=== PATIENT | male | born 1965 | race Caucasian/White ===

== ENCOUNTER 2018-01-22 14:53 | Inpatient (IN) | payer OTHER ==
--- NOTE | 2018-01-22 15:19 | EDPHY ---
H & P Time Seen by Provider: 01/22/18 14:57 HPI/ROS: CHIEF COMPLAINT: Fall, elbow fracture, pelvic fracture, scapular fracture HISTORY OF PRESENT ILLNESS: The patient is a 52-year-old male who presents to the emergency department as a transfer from [facility]. The patient is a michael who fell from a 20 ft Grain bin. The patient states he did not lose consciousness but he had significant pelvic in arm pain after the fall. The patient was seen at [facility]. He was diagnosed with multiple injuries. He has a comminuted fracture of his proximal intertrochanteric left femur, nondisplaced fractures of his left superior pubic ramus, right pubic body, right inferior pubic ramus and potentially his left sacral ala. Patient also has a left radial head fracture, olecranon fracture, and elbow laceration. The patient has left scapular fracture. The patient states that his wound was suture repaired at [facility]. The patient denies any headache or neck pain. No back pain. No shortness of breath or chest pain. No abdominal pain. No nausea vomiting. No incontinence of urine or stool. No numbness or tingling. The patient states he was transferred to [facility] because the physician at the clinic at [facility]. The patient came by ground ambulance. REVIEW OF SYSTEMS: My complete review of systems is negative except as mentioned in the HPI. Past Medical/Surgical History: Denies Past surgical history: Negative Social history: The patient does not smoke. He is a michael. Smoking Status: Never smoked Physical Exam: Vitals noted GENERAL: No acute distress, alert. HEAD: No evidence of trauma. EYES: PERRLA, EOMI, normal to inspection. ENT: Airway intact, normal external examination. NECK: The trachea is midline. There is no crepitus. The C-spine is nontender. NEXUS criteria is negative (no midline tenderness, no distracting injury, no altered mental status, no recent alcohol use, no focal neurologic deficit). RESPIRATORY: Clear to auscultation bilaterally, no rales, rhonchi or wheezing. There is no crepitus or palpable rib fractures. CVS: Regular rate and rhythm, no rubs, murmurs, or gallops. ABDOMEN: Soft, nontender, nondistended, normal bowel sounds, no bruising or abrasions. Pelvis: Normal appearing. I do not palpate his pelvis. No gross deformity. BACK: Normal to inspection, no spinal tenderness, no spinal step off, no notable bruising or abrasions. SKIN: Normal color, warm, dry. No pallor or diaphoresis. EXTREMITIES: Right upper extremity: Atraumatic. No visible signs of trauma. No tenderness palpation. Neurovascular intact distally. Left upper extremity: Patient has a dressing in place on his left elbow. He states his wound was suture repaired. I did not remove the dressing. Neurovascular intact distally. Right lower extremity: Atraumatic. No visible signs of trauma. No tenderness palpation. Neurovascular intact distally. Left lower extremity: The patient has a noted left femur fracture. I did not range of motion his left leg. He was neurovascular intact distally. Normal appearing. NEURO/PSYCH: Alert and oriented x 3, GCS 15, normal mood and affect, normal motor sensory exam. Constitutional: Initial Vital Signs Temperature (C) 36.5 C 01/22/18 15:07 Heart Rate 78 01/22/18 15:07 Respiratory Rate 18 01/22/18 15:07 Blood Pressure 129/71 H 01/22/18 15:07 O2 Sat (%) 98 01/22/18 15:07 O2 Delivery Mode Room Air Allergies/Adverse Reactions: No Known Allergies Allergy (Unverified 01/22/18 15:06) Home Medications: Medication Instructions Recorded NK [No Known Home Meds] 01/22/18 Medical Decision Making ED Course/Re-evaluation: I met EMS on arrival. I discussed the plan with the patient and family. I reviewed the patient's medical record from [facility]. I discussed the plan with the patient. He states he last ate at 7:00 a.m.. The patient has received Ancef IV and tetanus update. The patient's imaging disc was given to nursing staff to give to Radiology for upload. 1520: I discussed the case with Dr. Murcia all her from Trauma surgery. He was in the emergency department to evaluate the patient. 1555: Repaged Dr. Atkinson. Still awaiting call back. 1600: I discussed the case with Dr. Atkinson. He is aware. I rechecked the patient on multiple occasions. He was stable throughout his stay. He had no new complaints while here. I also discussed case with Dr. Linares on multiple occasions. Differential Diagnosis: My differential includes but isn't limited to pelvic fracture, femur fracture, hemorrhage, elbow fracture, scapular fracture, pneumothorax, hemothorax, anemia , head injury, spinal injury - Data Points Medications Given: Discontinued Medications Hydromorphone HCl (Dilaudid) 0.5 mg IVP EDNOW ONE Stop: 01/22/18 15:45 Last Admin: 01/22/18 16:03 Dose: 0.5 mg Departure - Departure Disposition: [facility] Inpatient Acute Clinical Impression: Elbow laceration Left scapula fracture Qualifiers: Encounter type: initial encounter Scapula location: unspecified part of scapula Fracture type: closed Qualified Code(s): S42.102A - Fracture of unspecified part of scapula, left shoulder, initial encounter for closed fracture Femur fracture, left Qualifiers: Encounter type: initial encounter Femur location: intertrochanteric Fracture type: closed Fracture alignment: nondisplaced Qualified Code(s): S72.145A - Nondisplaced intertrochanteric fracture of left femur, initial encounter for closed fracture Left radial head fracture Qualifiers: Encounter type: initial encounter Fracture type: closed Condition: Good
[2018-01-22] MEDS ORDERED: HYDROmorphONE/DILAUDID 2 MG/ML INJ IVP ONE ×2 (15:44→16:56)
--- NOTE | 2018-01-22 16:45 | ASMTCMCOM ---
CM Note CM Note Notes: Patient is a healthy 52 year old michael transferred to [facility] from [facility] after sustaining a 20 foot fall and subsequent fractures. He is accompanied by his Collette and other family. I introduced myself prior to his transfer to and assured him CM would be following with any discharge planning needs prn Date Signed: 01/22/2018 04:44 PM Electronically Signed By:Nikki Fuentes RN
[2018-01-22] MEDS ORDERED: HYDROmorphone HCL/NS 0.5 MG/ML SYR IVP PRN ×2 (17:13→22:05)
[2018-01-22] MEDS ORDERED: ONDANSETRON 4 MG/2 ML VIAL IVP PRN ×2 (17:13→22:05)
[2018-01-22] MEDS ORDERED: POLYMYXIN B SULFATE 500,000 UNIT/10 ML SYR IRR ONE ×2 (19:05→21:45)
[2018-01-22] MEDS ORDERED: BUPIVACAINE 0.5% 30 ML SDV ONE (19:05)
[2018-01-22] MEDS ORDERED: BUPIVACAINE/EPI 0.5% 30 ML SDV ONE (19:05)
[2018-01-22 19:09] LABS: PLATELET COUNT 159 10^3/uL (150-400)
--- NOTE | 2018-01-22 19:09 | GHP ---
[f rep st] HISTORY AND PHYSICAL DATE OF ADMISSION: 01/22/2018 CHIEF COMPLAINT: Fall. Trauma transfer. HISTORY OF PRESENT ILLNESS: This is a 52-year-old male who was a trauma transfer from [facility] in [facility]. Briefly, he is a michael who was on top of his grain bin approximately 20 feet high. 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 He states that when he fell, he struck mostly his left side, namely his pelvis. He denies hitting his head or having any loss of consciousness. He was subsequently taken to [facility] where he was received there as a full trauma. He had imaging of his chest, abdomen, and pelvis including CT scan and plain films and the following injuries are identified: A comminuted left intertrochanteric femur fracture, a nondisplaced fracture of his left superior pubic rami, and right pubic body as well as the right inferior pubic rami and likely his left sacral ala. He also has a fracture of his left radial head and olecranon process and a laceration which was subsequently repaired at the outside hospital. In addition, he also has a left scapular fracture. On arrival here, approximately 3 hours after leaving [place], he states that his pain is better. He complains of left lower extremity pain, but other than that states that he feels well. He is otherwise hemodynamically stable. He is protecting his airway. His breathing is normal and his circulation has been adequate throughout his hospital stay, both at the outside hospital during transport and here at [facility]. PAST MEDICAL HISTORY: None. PAST SURGICAL HISTORY: None. ALLERGIES: None. CURRENT MEDICATIONS: None. SOCIAL HISTORY: Denies illicit drug use. 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 Denies illicit drug use. FAMILY HISTORY: Noncontributory. REVIEW OF SYSTEMS: A full 10-point review was performed. PHYSICAL EXAMINATION: VITAL SIGNS: Temperature 37.6, blood pressure 113/74, heart rate 83, and he is 94% on 2 L nasal cannula. CONSTITUTIONAL: He is in a mild amount of distress and he is uncomfortable. HEENT: Eyes: His pupils are equal, round, and reactive to light and accommodation. He has anicteric sclerae and his extraocular movements are intact. Ears, nose, mouth, throat: He has moist mucous membranes. His hearing is normal. His ears appear normal and he has no oral mucosal ulcers. He has no ostensible trauma to the remainder of his face. CARDIOVASCULAR: He has a regular rate and rhythm without any murmurs. RESPIRATORY: There is no respiratory distress, rales, rhonchi, and is otherwise clear to auscultation bilaterally. GI: ABDOMEN: Soft, nondistended, nontender. He has normoactive bowel sounds. PELVIS: His pelvic is stable to both AP and lateral compression. He is tender on palpation of the left anterior-superior iliac spine. SKIN: Warm. Normal color. No rashes. The laceration on his left elbow has been subsequently repaired and is wrapped appropriately. There are no ostensible signs of infection at this time. MUSCULOSKELETAL: Left lower extremity is in an abducted and externally rotated position. He has limited movement of his left upper extremity, given fractures. Otherwise, has no tenderness with joint range of motion on the right side. NEUROLOGIC: He is alert and oriented x3. His cranial nerves 2-12 are intact. He has no weakness, numbness, or asterixis. PSYCH: He is interacting appropriately. He is not anxious. He is not encephalopathic and his thought process is linear. LYMPH, HEME, AND IMMUNOLOGIC: He has no cervical lymphadenopathy. No supraclavicular lymphadenopathy. LABS: Labs performed at the outside hospital are within normal limits. Upon arrival here, his white blood cell count is marginally elevated and his hemoglobin has dropped to 12. His metabolic panel is within normal limits. IMAGING: The patient had CT scans of the chest, abdomen, and pelvis as well as plain films of the same, a disc with the images accompanied the patient and I had them uploaded to our system. These images were personally reviewed. The following injuries are identified: Left scapular fracture, comminuted fracture of his proximal intertrochanteric left femur, nondisplaced fracture of his left superior pubic rami, right pubic body, right inferior pubic rami and left sacral ala, left radial head fracture, olecranon fracture. ASSESSMENT AND PLAN: A 52-year-old male status post 20 foot fall with the above injuries. He was subsequently admitted to the trauma service. He has received consultation from Orthopedics who are planning operative intervention. We will continue to follow him closely. His H and H and vitals have been stable. His pelvic fracture at this point looks stable as well. We will continue n.p.o. status. Continue to trend his hemoglobin and hematocrit. Since he is high risk for deep venous thrombosis, will subsequently be started on low-molecular weight heparin prophylaxis. He takes no chronic medications. /[id number]/MODL MTDD
[2018-01-22] MEDS ORDERED: LR 1,000 ML IV ONE (19:24)
--- NOTE | 2018-01-22 19:24 | PDANEPAE ---
ANE History of Present Illness 52 yo for orif hip fx ANE Past Medical History - Cardiovascular History Hx Hypertension: No Hx Arrhythmias: No Hx Chest Pain: No Hx Coronary Artery / Peripheral Vascular Disease: No Hx CHF / Valvular Disease: No Hx Palpitations: No - Pulmonary History Hx COPD: No Hx Asthma/Reactive Airway Disease: No Hx Recent Upper Respiratory Infection: No Hx Oxygen in Use at Home: No Hx Sleep Apnea: No Sleep Apnea Screening Result - Last Documented: Positive - Endocrine History Hx Diabetes: No ANE Review of Systems Review of Systems: - Exercise capacity METS (RN): 5 METS ANE Patient History - Allergies Allergies/Adverse Reactions: No Known Allergies Allergy (Unverified 01/22/18 15:06) - Home Medications Home medications: home medication list seen and reviewed Home Medications: NK [No Known Home Meds] 01/22/18 [Last Taken Unknown] - NPO status NPO Status: no food or drink >8 hours NPO Since - Liquids (Date): 01/22/18 NPO Since - Liquids (Time): 07:30 NPO Since - Solids (Date): 01/22/18 NPO Since - Solids (Time): 07:30 - Anes Hx Anes Hx: no prior problems - Smoking Hx Smoking Status: Never smoked ANE Labs/Vital Signs - Labs Result Diagrams: 01/22/18 18:56 01/22/18 18:56 - Vital Signs Blood Pressure: 113/108 Heart Rate: 82 Respiratory Rate: 17 O2 Sat (%): 94 Height: 5 ft 11.65 in Weight: 83.915 kg ANE Physical Exam - Airway Neck exam: FROM Mallampati Score: Class 2 Mouth exam: normal dental/mouth exam - Pulmonary Pulmonary: no respiratory distress - Cardiovascular Cardiovascular: regular rate and rhythym - ASA Status ASA Status: I ANE Anesthesia Plan Anesthesia Plan: general endotracheal anesthesia
[2018-01-22] MEDS ORDERED: PROPOFOL/EMULSION 500 MG/50 ML BOTTLE IV ONE (19:30)
[2018-01-22] MEDS ORDERED: fentaNYL 250 MCG/5 ML INJ ONE (19:30)
[2018-01-22] MEDS ORDERED: MIDAZOLAM 2 MG/2 ML VIAL ONE (19:52)
[2018-01-22] MEDS ORDERED: MIDAZOLAM 2 MG/2 ML VIAL IVP ONE (19:52)
[2018-01-22] MEDS ORDERED: PROPOFOL 200 MG/20 ML VIAL ONE (21:43)
[2018-01-22] MEDS ORDERED: BACITRACIN 50,000 UNITS/10 ML SYR IRR ONE (21:45)
[2018-01-22] MEDS ORDERED: fentaNYL 100 MCG/2 ML INJ IVP PRN (22:05)
[2018-01-22] MEDS ORDERED: NALOXONE HCL 0.4 MG/ML INJ IVP PRN (22:05)
[2018-01-22] MEDS ORDERED: ROCURONIUM 100 MG/10 ML VIAL ONE (22:06)
[2018-01-22] MEDS ORDERED: GLYCOPYRROLATE 0.2 MG/1 ML VIAL ONE (22:06)
[2018-01-22] MEDS ORDERED: NEOSTIGMINE METHYLSULFATE 3 MG/3 ML SYR ONE (22:06)
[2018-01-22] MEDS ORDERED: KETOROLAC 30 MG/1 ML SDV ONE (22:06)
[2018-01-22] MEDS ORDERED: ONDANSETRON 4 MG/2 ML VIAL ONE (22:06)
[2018-01-22] MEDS ORDERED: BUPIVACAINE 0.25% 30 ML SDV ONE (22:33)
--- NOTE | 2018-01-22 22:58 | POSTOPPROG ---
Post Op Note Date of Operation: 01/22/18 Surgeon: Laura Atkinson Freight Separator: radha Anesthesiologist: hilda Anesthesia: GET(General Endotracheal) Pre-op Diagnosis: l hip fx and open l elbow fx Procedure: l hip tfn with fluoro and l elbow I&D with exc bone fragments Inf/Abcess present in the surg proc area at time of surgery?: Yes Depth: Deep Incisional (Fascial) EBL: 100-500
--- NOTE | 2018-01-22 23:01 | POSTANESTH ---
Post Anesthetic Evaluation Cardiovascular Status: Normal, Stable Respiratory Status: Normal, Stable Level of Consciousness/Mental Status: Can Participate in Eval Pain Control: Adequate, Prn Tx Ordered Nausea/Vomiting Control: Adequate, Prn Tx Ordered Complications Possibly Related to Anesthesia: None Noted
--- NOTE | 2018-01-22 23:40 | GDS ---
[f rep st] DISCHARGE SUMMARY CHIEF COMPLAINT: Left hip, left shoulder, left elbow and pelvis pain. HISTORY OF PRESENT ILLNESS: The patient is a 52-year-old male, who fell from a grain elevator t[place], in [place], [place]. Was diagnosed with a subtrochanteric femur fracture on the left side as well as an open elbow fracture. On secondary survey, they found a scapular fracture as well as pubic rami fractures. He was sent to the hospital for definitive treatment. I was asked to see the patie nt. PHYSICAL EXAM: LEFT LOWER EXTREMITY: He is neurologically intact to the dorsal and plantar portions of the foot with EHL, FHL, anterior tib and gastroc intact. He has pain to a log roll through the l eg. X-ray exam reveals a relatively nondisplaced subtrochanteric fracture as well as pubic rami frac tures on the pelvis films that were sent here from [place]. LEFT UPPER EXTREMITY: A bleeding wound at the point of the olecranon, with significant amount of swe lling and bloody oozing from the area. He remains grossly neurologically intact to the radial, media n and ulnar nerves. Motion was not checked secondary to the fragile nature of the elbow, and seconda ry to the patient's pain. X-ray has revealed no clear intra-articular fracture but abundant amount o f cortical fracture pieces associated with the posterior portion of the olecranon. ASSESSMENT AND PLAN: The patient is status post left subtrochanteric fracture, left open elbow fract ure, left scapular fracture, and bilateral pubic rami fractures. Options discussed with the patient include continued conservative measures versus operative treatment. He opted for operative treatment . He will therefore be brought to the operating room as time is available for a left hip trochanteri c femoral nail and a left elbow irrigation and debridement. /[id number]/MODL
--- NOTE | 2018-01-23 00:20 | GOP ---
[f rep st] OPERATIVE REPORT DATE OF OPERATION: 01/22/2018 SURGEON: Laura Atkinson MD PIN ATTACHER: KHADAR Leonard, whose presence was medically necessary. ANESTHESIA: By endotracheal intubation. PREOPERATIVE DIAGNOSIS: 1. Left subtrochanteric hip fracture. 2. Left open elbow fracture. POSTOPERATIVE DIAGNOSIS: 1. Left subtrochanteric hip fracture. 2. Left open elbow fracture. PROCEDURE PERFORMED: 1. Left trochanteric femoral nail with fluoroscopy. 2. Left elbow irrigation and debridement. FINDINGS: INDICATIONS: This is a 52-year-old male, who fell earlier today from a grain elevator, approximately 25 feet, landed on his left side. Was diagnosed in [place], [place] with a subtrochanteric fracture a nd an open elbow fracture. He was sent here to [facility] for definitive fixation. DESCRIPTION OF PROCEDURE: The patient brought to the operating room after the left elbow and left hi p had been identified as the correct sites by the patient, nurse and physician. Once in the operatin g room, he was placed under general anesthesia using endotracheal intubation. Once asleep, he was placed on a traction table with a well-padded peroneal post and both legs placed in appropriate leg holders. Fluoroscopy was used to ensure proper positioning of the hip and good re duction of the left subtrochanteric fracture. Once in proper position, the left hip and flank were s terilely prepped and draped in usual fashion using GSI solution. Once prepped and draped, fluoroscop y was used to locate the areas to be made for the incision above the greater trochanter. Sharp disse ction was then carried down through the skin and subcutaneous layers down onto the greater trochanter itself. Guidewire was placed in the tip of the greater trochanter, drilled into place. A cannulate d awl was then placed over the guidewire into the greater trochanter, until achieving adequate hole f or entry of the guidewire. A long guidewire was then passed into the greater trochanter extending in to the distal femur. This position was checked under fluoroscopy. It was measured to be 400 mm in l ength. Sequential reamers were then passed over the guidewire, up to 13.5 mm; therefore, a 12 x 400 mm trochanteric femoral nail from one[employer]est[employer] was placed on the insertion device, passed over the guidewi re into the femur. Once in proper position, the guidewire was removed. Outrigger was placed onto th e proximal portion of the gildardo and an incision was made on the lateral portion of the thigh associated with the entry point. Guide was cinched next to the cortical bone, and the guidewire passed through a guide into the bone through the trochanteric femoral nail into the femoral head. Its position was checked under fluoroscopy, noted to be in a good position on AP and lateral projections. The guidew harsh was measured to be a depth of 105 mm. Therefore, the drill was set at 105 mm, passed over the gu idewire into the femoral head and neck to a depth of 105 mm, at which point, a 105 mm triflange screw was passed over the wire into the femoral head. The locking mechanism of the proximal portion of th e plate was engaged, hold it into place. The outrigger and insertion device were removed from the superior portion of the femur. The leg was then able to be abducted and fluoroscopy was use d to get perfect circles of the distal end of the gildardo, and a single transverse screw was placed from lateral to medial, through the bone. Once in place, its position was also checked on fluoroscopy to ensure proper positioning. All 3 incision sites were then thoroughly irrigated with antibiotic solut ion. We closed in layers to include 0 Vicryl suture for the fascial layers, 2-0 Vicryl sutures for t he subcutaneous layers, and nay for the skin. The wounds were then dressed with Xeroform, 4 x 4, and Tegaderm. Patient was completely undraped in the operating room. The fracture table was reasse mbled, the peroneal post removed, the legs were then secured onto the reassembled fracture table at w hich point, attention was turned to the left upper extremity. A tourniquet was placed around the upper portion the left upper extremity. The left upper extremity was sterilely prepped and draped in the usual fashion using a GSI solution. Once prepped and draped, the limb was elevated for 2 minutes. The tourniquet was inflated to 250 mmHg. Patient had a macera wilver wound at the tip of the olecranon. This was opened both proximally and distally with care taken to stay away from the cubital tunnel. Sharp dissection was carried down through the skin and subcuta neous layers down onto the bone itself. There were no transverse fracture lines noted to extend intr a-articularly, and the triceps was noted to be attached onto the tip of the olecranon. However, ther e was an abundant amount of bony fragments associated with the cortical surface of the proximal olecr anon. Secondary to their small size and numerous numbers, they were debrided until achieving a zuleika h surface in the area. 2 L of antibiotic solution was irrigated through the area using bulb syringe in order to minimize contamination, at which point a soft tissue closure was accomplished to bring a portion of the triceps tendon onto the bone itself, and to close the periosteum over the actual bone itself. 0 Vicryl and 2-0 Vicryl suture were used to close the fascial and subcutaneous layers, and a 3-0 Prolene suture in vertical mattress and Allgower type sutures in order to close the wound. Once completed, tourniquet was deflated at 37 minutes. 15 cc of Marcaine was infused into the elbow. Th e wound was dressed with Xeroform, 4 x 4's, wrapped in Webril. A long-arm posterior plaster splint w as put into place in order to minimize motion through the elbow. The splint was wrapped in an Cole wr ap. The patient was then woken up, extubated, transferred onto a bed, and sent to recovery room in good c ondition. TOURNIQUET TIME: 37 minutes for the elbow. /[id number]/MODL
[2018-01-23] MEDS: traMADol 50 MG TAB PO SCH ×5 (02:36→23:03)
[2018-01-23 05:20] LABS: PLATELET COUNT 120 10^3/uL (150-400)
[2018-01-23] MEDS: OXYCODONE/APAP 5/325 TAB PO PRN ×3 (09:49→12:49)
[2018-01-23] MEDS: ENOXAPARIN 40 MG/0.4 ML SYR SC SCH (09:50)
--- NOTE | 2018-01-23 10:13 | TRAUMAPNT ---
Trauma Tertiary Progress Note New Findings: none Assessment/Plan: rehab and dspo per ortho Objective: Vital Signs Temp Pulse Resp BP Pulse Ox 36.9 C 75 15 112/67 98 01/23/18 07:48 01/23/18 07:48 01/23/18 07:48 01/23/18 07:48 01/23/18 07:48 Laboratory Results 01/23/18 04:52 01/22/18 18:56 01/22/18 01/23/18 01/24/18 05:59 05:59 05:59 Intake Total 1775 Output Total 650 Balance 1125 - C-Spine Clearance Cervical Spine Cleared: Yes Physical Exam - Physical Exam General Appearance: WD/WN EENT: PERRL/EOMI Neck: non-tender Respiratory: lungs clear, normal breath sounds Cardiac/Chest: regular rate, rhythm Abdomen: non-tender, soft Back: Normal inspection Skin: normal color Neuro/Psych: no motor/sensory deficits
--- NOTE | 2018-01-23 10:54 | PDMN ---
Medical Necessity Medical necessity: Patient meets inpatient criteria per physician note and [facility] Multiple Trauma [facility] (mult fractures s/p 20 ft fall: L scapular fracture, open L elbow fracture requiring I&D, mult pelvic fractures, comminuted L intertrochanteric femur fracture requiring IM nail; anticipated LOS > 2 midnights for planned surgery, serial H&H's, IV Ancef, PT/OT when stable, ongoing eval and treatment of multiple traumatic injuries.)
--- NOTE | 2018-01-23 15:05 | ASMTCMCOM ---
CM Note CM Note Notes: Reviewed patient's chart/therapy recommendations. OT recommending Inpatient Rehab at this time. Unable to tolerate PT today. Met with patient regarding discharge plan of care. Patient is from [place], [place] and is hoping to do therapy back at home at [facility] #[phone]. Per patient, the rehab center does not have beds, more like an outpatient rehab center. CM explained the possibility of [facility] Inpatient Rehab (Anh to reevaluate on Friday, consult placed). Patient would like to see how he does in therapy over this weekend before making any decisions. Patient aware CM is available this weekend for any questions. Current Discharge Plan: TBD. Possibly Inpatient Rehab. Date Signed: 01/23/2018 03:05 PM Electronically Signed By:Isabela Ziegler RN
[2018-01-23] MEDS: HYDROCODONE/APAP 5/325 TAB PO PRN (18:28)
[2018-01-24] MEDS: traMADol 50 MG TAB PO SCH ×4 (05:25→23:34)
[2018-01-24] MEDS: HYDROCODONE/APAP 5/325 TAB PO PRN ×4 (05:25→19:48)
--- NOTE | 2018-01-24 08:07 | TRAUMAPN ---
Trauma Progress Note - Problem/Surgery Performed (2) Fracture, olecranon, open Assessment/Plan: s/p ORIF Dr. Atkinson, distal NV intact Qualifiers: Encounter type: initial encounter (3) Tibial plateau fracture, left Assessment/Plan: Dr. Atkinson has recommended ORIF to the patient Qualifiers: Encounter type: initial encounter (4) Tibial plateau fracture, right Assessment/Plan: non operative treatment recommended by Dr. Atkinson Qualifiers: Encounter type: initial encounter (5) Pelvic fracture Assessment/Plan: likely contributing to blood loss anemia minimall displaced right inferior and superior pubic ramus fractures/left SI fx Qualifiers: Encounter type: initial encounter Pelvic bone location: multiple parts Fracture type: closed Fracture alignment: with stable disruption of pelvic ring Qualified Code(s): S32.810A - Multiple fractures of pelvis with stable disruption of pelvic ring, initial encounter for closed fracture (6) Acute blood loss anemia Assessment/Plan: hemodynamically stable/will monitor H/H discussed potential need for transfusion unlikely to require angio embolization (7) Femur fracture, left Assessment/Plan: s/p ORIF Dr. Atkinson Qualifiers: Encounter type: initial encounter Femur location: intertrochanteric Fracture type: closed Fracture alignment: nondisplaced Qualified Code(s): S72.145A - Nondisplaced intertrochanteric fracture of left femur, initial encounter for closed fracture (8) Left radial head fracture Qualifiers: Encounter type: initial encounter Fracture type: closed (9) Left scapula fracture Assessment/Plan: minimally displaced Qualifiers: Encounter type: initial encounter Scapula location: unspecified part of scapula Fracture type: closed Qualified Code(s): S42.102A - Fracture of unspecified part of scapula, left shoulder, initial encounter for closed fracture Assessment/Plan: s/p multiple injuries/fx moderate blood loss anemia high risk of VTE on Lovenox/VTE Plan: ORIF tibial fx per Dr. Atkinson monitor H/H, type and screen Subjective: Resting comfortably, no BM since admission. Mr. Bush is s/p L femoral ORIF and awaiting left tibial plateau fx ORIF scheduled for Friday. He was transferred from [place] after a fall from a 25 ft sustaining multiple injuries including open left olecranon fx, scapular fx, left proximal femur fx, bilateral tibial plateau fx, bilateral pubic ramus fx. Objective: Vital Signs Temp Pulse Resp BP Pulse Ox 37.6 C 90 12 108/60 91 L 01/24/18 07:30 01/24/18 07:30 01/24/18 07:30 01/24/18 07:30 01/24/18 07:30 Laboratory Results 01/24/18 05:17 01/22/18 18:56 01/23/18 01/24/18 01/25/18 05:59 05:59 05:59 Intake Total 1775 Output Total 650 1115 Balance 1125 -1115 - C-Spine Clearance Cervical Spine Cleared: Yes Provider who Cleared Cervical Spine: Milagros Physical Exam - Physical Exam General Appearance: WD/WN, alert, mild distress EENT: PERRL/EOMI, normal ENT inspection Neck: non-tender, full range of motion, supple Respiratory: lungs clear, normal breath sounds, decreased breath sounds Cardiac/Chest: normal peripheral pulses, regular rate, rhythm Peripheral Pulses: 4+: dorsalis-pedis (R), dorsalis-pedis (L) Abdomen: normal bowel sounds, non-tender, soft Male Genitalia: deferred Rectal: deferred Skin: normal color (mild palor), warm/dry Extremities: other (bilateral knee tenderness/SCDs in place/distal NV intact) Neuro/Psych: alert, normal mood/affect, oriented x 3
[2018-01-24] MEDS: ENOXAPARIN 40 MG/0.4 ML SYR SC SCH (08:33)
[2018-01-24] MEDS ORDERED: BISACODYL 10 MG SUPP PR PRN (12:16)
[2018-01-24] MEDS ORDERED: LACTULOSE 20 GM/30 ML UDCUP PO PRN (12:16)
[2018-01-24] MEDS ORDERED: MAGNESIUM HYDROXIDE 30 ML UDCUP PO PRN (12:16)
--- NOTE | 2018-01-24 13:23 | SOAPPROG ---
SOAP Progress Note Assessment/Plan: Assessment: Plan: Subjective: states he feels better dressing C&D with BLE and LUE NVI swelling decreased in l knee plan for l knee orif on friday trapeze to bed Objective: Vital Signs Temp Pulse Resp BP Pulse Ox 37.3 C 87 15 135/67 H 95 01/24/18 12:00 01/24/18 12:00 01/24/18 12:00 01/24/18 12:00 01/24/18 12:00 Laboratory Results 01/24/18 08:22 01/22/18 18:56 01/23/18 01/24/18 01/25/18 05:59 05:59 05:59 Intake Total 1775 Output Total 650 1115 Balance 1125 -1115 ICD10 Worksheet Patient Problems: Problems Problem Status Onset Acute blood loss anemia Acute Elbow laceration Acute Fall (on) (from) unspecified stairs and steps, initial encounter Acute Femur fracture, left Acute Fracture, olecranon, open Acute Left radial head fracture Acute Left scapula fracture Acute Pelvic fracture Acute Tibial plateau fracture, left Acute Tibial plateau fracture, right Acute
[2018-01-24] MEDS: SENNOSIDES/DOCUSATE SODIUM TAB PO SCH (19:48)
[2018-01-24] MEDS: POLYETHYLENE GLYCOL 3350 17 GM PKT PO PRN (19:57)
[2018-01-25] MEDS: traMADol 50 MG TAB PO SCH ×4 (05:38→23:10)
[2018-01-25] MEDS: HYDROCODONE/APAP 5/325 TAB PO PRN ×4 (05:40→23:10)
[2018-01-25] MEDS: SENNOSIDES/DOCUSATE SODIUM TAB PO SCH ×2 (09:43→20:12)
[2018-01-25] MEDS: POLYETHYLENE GLYCOL 3350 17 GM PKT PO PRN (09:46)
[2018-01-25] MEDS: ENOXAPARIN 40 MG/0.4 ML SYR SC SCH (10:52)
--- NOTE | 2018-01-25 12:40 | TRAUMAPN ---
Trauma Progress Note Assessment/Plan: He was transferred from [place] after a fall from a 25 ft sustaining multiple injuries including open left olecranon fx, scapular fx, left proximal femur fx, bilateral tibial plateau fx, bilateral pubic ramus fx Fracture, olecranon, open Assessment/Plan: s/p ORIF Dr. Atkinson, distal NV intact (3) Tibial plateau fracture, left Assessment/Plan: Dr. Atkinson has recommended ORIF to the patient - Scheduled for Friday (4) Tibial plateau fracture, right Assessment/Plan: non operative treatment recommended by Dr. Atkinson (5) Pelvic fracture Assessment/Plan: likely contributing to blood loss anemia minimall displaced right inferior and superior pubic ramus fractures/left SI fx Qualifiers: Encounter type: initial encounter Pelvic bone location: multiple parts Fracture type: closed Fracture alignment: with stable disruption of pelvic ring Qualified Code(s): S32.810A - Multiple fractures of pelvis with stable disruption of pelvic ring, initial encounter for closed fracture (6) Acute blood loss anemia Assessment/Plan: hemodynamically stable/will monitor H/H - check again in am discussed potential need for transfusion - repeat H/H stable today (7) Femur fracture, left Assessment/Plan: s/p ORIF Dr. Atkinson (8) Left radial head fracture Qualifiers: Encounter type: initial encounter Fracture type: closed In splint (9) Left scapula fracture Assessment/Plan: minimally displaced Sling for comfort Assessment/Plan: s/p multiple injuries/fx moderate blood loss anemia high risk of VTE on Lovenox/VTE Subjective: S: Pain controlled Objective: Vital Signs Temp Pulse Resp BP Pulse Ox 37.3 C 86 16 115/66 96 01/25/18 07:52 01/25/18 07:52 01/25/18 07:52 01/25/18 07:52 01/25/18 07:52 Laboratory Results 01/25/18 11:47 01/22/18 18:56 01/24/18 01/25/18 01/26/18 05:59 05:59 05:59 Output Total 1115 Balance -1115 - C-Spine Clearance Cervical Spine Cleared: Yes Provider who Cleared Cervical Spine: Milagros Physical Exam - Physical Exam General Appearance: WD/WN, alert, no apparent distress EENT: PERRL/EOMI, normal ENT inspection, No scleral icterus (R), No scleral icterus (L), No hearing deficit Respiratory: lungs clear, normal breath sounds Cardiac/Chest: regular rate, rhythm Abdomen: normal bowel sounds, non-tender, soft Skin: normal color, warm/dry Extremities: other (nv intact. L arm in splint)
--- NOTE | 2018-01-25 15:40 | SOAPPROG ---
SOAP Progress Note Assessment/Plan: Assessment: Plan: Subjective: resting comfortably dressings intact decreased swelling in the knee await surgery for Friday Objective: Vital Signs Temp Pulse Resp BP Pulse Ox 37.3 C 86 16 115/66 96 01/25/18 07:52 01/25/18 07:52 01/25/18 07:52 01/25/18 07:52 01/25/18 07:52 Laboratory Results 01/25/18 11:47 01/22/18 18:56 01/24/18 01/25/18 01/26/18 05:59 05:59 05:59 Output Total 1115 Balance -1115 ICD10 Worksheet Patient Problems: Problems Problem Status Onset Acute blood loss anemia Acute Elbow laceration Acute Fall (on) (from) unspecified stairs and steps, initial encounter Acute Femur fracture, left Acute Fracture, olecranon, open Acute Left radial head fracture Acute Left scapula fracture Acute Pelvic fracture Acute Tibial plateau fracture, left Acute Tibial plateau fracture, right Acute
[2018-01-25] MEDS: ACETAMINOPHEN 325 MG TAB PO PRN (17:14)
--- NOTE | 2018-01-25 17:21 | ASMTCMCOM ---
CM Note CM Note Notes: CM consult with RN, appears patient to have surgery 01/26 or 01/27. CM available to address ongoing CM needs. Date Signed: 01/25/2018 05:20 PM Electronically Signed By:Fatmata Mahmood
[2018-01-26 04:58] LABS: PLATELET COUNT 146 10^3/uL (150-400)
[2018-01-26] MEDS: HYDROCODONE/APAP 5/325 TAB PO PRN ×3 (06:11→23:53)
[2018-01-26] MEDS: traMADol 50 MG TAB PO SCH ×4 (06:11→23:52)
[2018-01-26] MEDS: ACETAMINOPHEN 325 MG TAB PO PRN (08:00)
[2018-01-26] MEDS: SENNOSIDES/DOCUSATE SODIUM TAB PO SCH ×2 (08:00→20:36)
--- NOTE | 2018-01-26 11:56 | TRAUMAPN ---
Trauma Progress Note Assessment/Plan: He was transferred from [place] after a fall from a 25 ft sustaining multiple injuries including open left olecranon fx, scapular fx, left proximal femur fx, bilateral tibial plateau fx, bilateral pubic ramus fx In brief, no major changes to plan. +worsened acute blood loss anemia. 2 u pRBCs ordered today and running per Dr. Roberson. Surgery planned with Dr. Atkinson for tomorrow. Seen and examined with Dr. Roberson. Fracture, olecranon, open Assessment/Plan: s/p ORIF Dr. Atkinson, distal NV intact Tibial plateau fracture, left Assessment/Plan: Dr. Atkinson has recommended ORIF to the patient - Scheduled for Friday Tibial plateau fracture, right Assessment/Plan: non operative treatment recommended by Dr. Atkinson Pelvic fracture Assessment/Plan: likely contributing to blood loss anemia minimall displaced right inferior and superior pubic ramus fractures/left SI fx Qualifiers: Encounter type: initial encounter Pelvic bone location: multiple parts Fracture type: closed Fracture alignment: with stable disruption of pelvic ring Qualified Code(s): S32.810A - Multiple fractures of pelvis with stable disruption of pelvic ring, initial encounter for closed fracture Acute blood loss anemia Assessment/Plan: H&H decreased. Blood transfusion today. Femur fracture, left Assessment/Plan: s/p ORIF Dr. Atkinson Left radial head fracture Qualifiers: Encounter type: initial encounter Fracture type: closed In splint Left scapula fracture Assessment/Plan: minimally displaced Sling for comfort Assessment/Plan: s/p multiple injuries/fx moderate blood loss anemia VTE ppx held in light of above S: some pain, nothing new O: alert, nad ncat chest clear rrr abd soft, nt L arm and leg well dressed. Objective: Vital Signs Temp Pulse Resp BP Pulse Ox 37.3 C 94 16 135/74 H 98 01/26/18 11:17 01/26/18 11:17 01/26/18 11:17 01/26/18 11:17 01/26/18 11:17 Laboratory Results 01/26/18 04:21 01/22/18 18:56 01/25/18 01/26/18 01/27/18 05:59 05:59 05:59 Intake Total 1300 350 Output Total 1325 450 Balance -25 -100 - C-Spine Clearance Cervical Spine Cleared: Yes Provider who Cleared Cervical Spine: Milagros
--- NOTE | 2018-01-26 14:27 | SOAPPROG ---
SOAP Progress Note Assessment/Plan: Assessment: Plan: - Pt is sched for sx tomorrow, orif tib plateau fx on L - foot doesn't seem to be an issue, may have to do w his postion in the bed. Will monitor. 01/26/18 14:26 Subjective: Pt is doing well, pain controlled. Stating he has slight numbness of the R 5th toe for the past hour or so. Objective: Vital Signs Temp Pulse Resp BP Pulse Ox 37.3 C 94 16 135/74 H 98 01/26/18 11:17 01/26/18 11:17 01/26/18 11:17 01/26/18 11:17 01/26/18 11:17 Laboratory Results 01/26/18 04:21 01/22/18 18:56 01/25/18 01/26/18 01/27/18 05:59 05:59 05:59 Intake Total 1300 350 Output Total 1325 1050 Balance -25 -700 L hip - wound slight serous drainage, no erythema, compartments soft, nvi L elbow - nvi, splint on intact, B knees - moderate swelling, calf NT, NVI - Time Spent With Patient Time Spent With Patient: 20 - Pending Discharge Pending Discharge Within 24 Hours: No Pending Discharge Within 48 Hours: No ICD10 Worksheet Patient Problems: Problems Problem Status Onset Acute blood loss anemia Acute Elbow laceration Acute Fall (on) (from) unspecified stairs and steps, initial encounter Acute Femur fracture, left Acute Fracture, olecranon, open Acute Left radial head fracture Acute Left scapula fracture Acute Pelvic fracture Acute Tibial plateau fracture, left Acute Tibial plateau fracture, right Acute
--- NOTE | 2018-01-26 19:52 | TRAUMAPN ---
Trauma Progress Note Assessment/Plan: Refer to my PA node but Janelle Barker/patient evaluation, exam and plan initiated by me as documented in her note Objective: Vital Signs Temp Pulse Resp BP Pulse Ox 36.7 C 82 16 122/75 H 97 01/26/18 16:00 01/26/18 16:00 01/26/18 16:00 01/26/18 16:00 01/26/18 16:00 Laboratory Results 01/26/18 04:21 01/22/18 18:56 01/25/18 01/26/18 01/27/18 05:59 05:59 05:59 Intake Total 1300 350 Output Total 1325 1750 Balance -25 -1400 - C-Spine Clearance Cervical Spine Cleared: Yes Provider who Cleared Cervical Spine: Milagros
[2018-01-27 05:59] LABS: PLATELET COUNT 179 10^3/uL (150-400)
[2018-01-27] MEDS: HYDROCODONE/APAP 5/325 TAB PO PRN ×3 (06:01→23:20)
[2018-01-27] MEDS: traMADol 50 MG TAB PO SCH ×3 (06:01→19:34)
--- NOTE | 2018-01-27 08:31 | TRAUMAPN ---
Trauma Progress Note Assessment/Plan: To OR today for ORIF L tib plat stable fractures right tib brace great peripheral pulses sensation intact ice packs LUE splint acute blood loss anemia - improved after PRBCs yesterday supplemental O2 bowel protocol, having bowel movements Objective: Vital Signs Temp Pulse Resp BP Pulse Ox 37.4 C 83 16 129/68 H 93 01/26/18 23:18 01/26/18 23:18 01/26/18 23:18 01/26/18 23:18 01/26/18 23:18 Laboratory Results 01/27/18 05:34 01/22/18 18:56 01/26/18 01/27/18 01/28/18 05:59 05:59 05:59 Intake Total 1300 500 Output Total 1325 4439 Balance -25 -2425 - C-Spine Clearance Cervical Spine Cleared: Yes Provider who Cleared Cervical Spine: Milagros
[2018-01-27] MEDS: SENNOSIDES/DOCUSATE SODIUM TAB PO SCH (09:17)
[2018-01-27] MEDS ORDERED: BUPIVACAINE/EPI 0.5% 30 ML SDV ONE (14:46)
[2018-01-27] MEDS ORDERED: POLYMYXIN B SULFATE 500,000 UNIT/10 ML SYR IRR ONE (14:46)
[2018-01-27] MEDS ORDERED: BACITRACIN 50,000 UNITS/10 ML SYR IRR ONE (14:46)
[2018-01-27] MEDS ORDERED: LR 1,000 ML IV ONE (15:49)
[2018-01-27] MEDS ORDERED: MIDAZOLAM 2 MG/2 ML VIAL IVP ONE (16:18)
--- NOTE | 2018-01-27 16:21 | PDANEPAE ---
ANE History of Present Illness LEFT TIBIAL PLATEAU FRACTURE ANE Past Medical History - Cardiovascular History Hx Hypertension: No Hx Arrhythmias: No Hx Chest Pain: No Hx Coronary Artery / Peripheral Vascular Disease: No Hx CHF / Valvular Disease: No Hx Palpitations: No - Pulmonary History Hx COPD: No Hx Asthma/Reactive Airway Disease: No Hx Recent Upper Respiratory Infection: No Hx Oxygen in Use at Home: No Hx Sleep Apnea: Yes Sleep Apnea Screening Result - Last Documented: Positive - Endocrine History Hx Diabetes: No ANE Review of Systems Review of Systems: - Exercise capacity METS (RN): 5 METS ANE Patient History - Allergies Allergies/Adverse Reactions: No Known Allergies Allergy (Unverified 01/22/18 15:06) - Home Medications Home Medications: NK [No Known Home Meds] 01/22/18 [Last Taken Unknown] - NPO status NPO Since - Liquids (Date): 01/27/18 NPO Since - Liquids (Time): 00:00 NPO Since - Solids (Date): 01/27/18 NPO Since - Solids (Time): 00:00 - Smoking Hx Smoking Status: Never smoked ANE Labs/Vital Signs - Labs Result Diagrams: 01/27/18 05:34 01/22/18 18:56 - Vital Signs Blood Pressure: 130/74 Heart Rate: 81 Respiratory Rate: 16 O2 Sat (%): 92 Height: 182 cm Weight: 83.915 kg ANE Physical Exam - Airway Neck exam: FROM Mallampati Score: Class 1 Mouth exam: normal dental/mouth exam - Pulmonary Pulmonary: no respiratory distress - Cardiovascular Cardiovascular: regular rate and rhythym - ASA Status ASA Status: I ANE Anesthesia Plan Anesthesia Plan: general endotracheal anesthesia Regional Anesthesia: adductor canal FNB
[2018-01-27] MEDS ORDERED: MIDAZOLAM 2 MG/2 ML VIAL ONE (16:23)
[2018-01-27] MEDS ORDERED: PROPOFOL 200 MG/20 ML VIAL ONE (16:23)
[2018-01-27] MEDS ORDERED: fentaNYL 100 MCG/2 ML INJ ONE ×7 (16:23→21:57)
[2018-01-27] MEDS ORDERED: THROMBIN (BOVINE) 5,000 UNIT VIAL TP ONE (16:55)
[2018-01-27] MEDS ORDERED: CALCIUM CHLORIDE 1 GM/10 ML INJ ONE (16:55)
[2018-01-27] MEDS ORDERED: ROCURONIUM 50 MG/5 ML VIAL ONE (17:18)
[2018-01-27] MEDS ORDERED: ONDANSETRON 4 MG/2 ML VIAL ONE ×2 (17:18→21:01)
[2018-01-27] MEDS ORDERED: HYDROmorphONE/DILAUDID 2 MG/ML INJ ONE ×3 (17:18→21:57)
[2018-01-27] MEDS ORDERED: DEXAMETHASONE 4 MG/ML VIAL ONE (17:18)
[2018-01-27] MEDS ORDERED: ceFAZolin 1 GM VIAL ONE (17:18)
[2018-01-27] MEDS ORDERED: ONDANSETRON 4 MG/2 ML VIAL IVP PRN (18:28)
[2018-01-27] MEDS ORDERED: NALOXONE HCL 0.4 MG/ML INJ IVP PRN (18:28)
[2018-01-27] MEDS ORDERED: PROMETHAZINE HCL 25 MG/ML INJ IVP PRN (18:28)
--- NOTE | 2018-01-27 20:52 | POSTOPPROG ---
Post Op Note Date of Operation: 01/27/18 Surgeon: Laura Atkinson Hook And Eye Machine Operator: radha Anesthesiologist: jacob Anesthesia: LMA, Other (Specify) Pre-op Diagnosis: l lat tib plateau fx Procedure: orif l lat tib plateau with fluoro Inf/Abcess present in the surg proc area at time of surgery?: No Depth: Deep Incisional (Fascial) EBL: 100-500
[2018-01-27] MEDS: HYDROmorphONE/DILAUDID 2 MG/ML INJ IVP PRN ×7 (20:58→22:20)
[2018-01-27] MEDS: fentaNYL 100 MCG/2 ML INJ IVP PRN ×7 (20:58→22:20)
[2018-01-27] MEDS ORDERED: PROMETHAZINE HCL 25 MG/ML INJ ONE (21:01)
--- NOTE | 2018-01-27 21:05 | TRAUMAPN ---
Trauma Progress Note Assessment/Plan: He was transferred from [place] after a fall from a 25 ft sustaining multiple injuries including open left olecranon fx, scapular fx, left proximal femur fx, bilateral tibial plateau fx, bilateral pubic ramus fx Fracture, olecranon, open Assessment/Plan: s/p ORIF Dr. Atkinson, distal NV intact (3) Tibial plateau fracture, left Assessment/Plan: ORIF scheduled for today (4) Tibial plateau fracture, right Assessment/Plan: non operative treatment recommended by Dr. Atkinson (5) Pelvic fracture Assessment/Plan: likely contributing to blood loss anemia minimall displaced right inferior and superior pubic ramus fractures/left SI fx Qualifiers: Encounter type: initial encounter Pelvic bone location: multiple parts Fracture type: closed Fracture alignment: with stable disruption of pelvic ring Qualified Code(s): S32.810A - Multiple fractures of pelvis with stable disruption of pelvic ring, initial encounter for closed fracture (6) Acute blood loss anemia Assessment/Plan: S/P transfusion 01/26/2018 hemodynamically stable/will monitor H/H - check again in am (7) Femur fracture, left Assessment/Plan: s/p ORIF Dr. Atkinson (8) Left radial head fracture Qualifiers: Encounter type: initial encounter Fracture type: closed In splint (9) Left scapula fracture Assessment/Plan: minimally displaced Sling for comfort Assessment/Plan: s/p multiple injuries/fx moderate blood loss anemia high risk of VTE on Lovenox/VTE Subjective: S: Pain controlled Subjective: BM yesteday Objective: Vital Signs Temp Pulse Resp BP Pulse Ox 36.8 C 81 16 130/74 H 92 01/27/18 16:02 01/27/18 16:21 01/27/18 16:21 01/27/18 16:21 01/27/18 16:21 Laboratory Results 01/27/18 05:34 01/22/18 18:56 01/26/18 01/27/18 01/28/18 05:59 05:59 05:59 Intake Total 1300 500 Output Total 5626 7453 579 [facility]25 -2425 -575 - C-Spine Clearance Cervical Spine Cleared: Yes Provider who Cleared Cervical Spine: Milagros Physical Exam - Physical Exam General Appearance: WD/WN, alert, no apparent distress EENT: PERRL/EOMI, normal ENT inspection, No scleral icterus (R), No scleral icterus (L), No hearing deficit Neck: non-tender, full range of motion, supple Respiratory: chest non-tender, lungs clear Cardiac/Chest: regular rate, rhythm, edema Peripheral Pulses: 2+: dorsalis-pedis (R), dorsalis-pedis (L) Abdomen: normal bowel sounds, non-tender, soft Skin: normal color, warm/dry Extremities: other (L arm and L leg in splint) Neuro/Psych: no motor/sensory deficits
--- NOTE | 2018-01-27 21:39 | GOP ---
[f rep st] OPERATIVE REPORT DATE OF OPERATION: 01/27/2018 SURGEON: Laura Atkinson MD LEAD DATABASE DEVELOPER: Jm Broussard CSFA, LSA, whose presence was medically necessary. ANESTHESIA: By LMA plus adductor nerve block per surgeon's request. PREOPERATIVE DIAGNOSIS: Left lateral tibial plateau fracture. POSTOPERATIVE DIAGNOSIS: Left lateral tibial plateau fracture with lateral meniscal avulsion. PROCEDURE PERFORMED: Left lateral tibial plateau open reduction and internal fixation with fluorosco py as well as lateral meniscal repair. 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 O nce his femur fracture and open elbow fracture had a chance to settle down and heal and his blood cou nt returned to a more normal level and the swelling had decreased in the knee to the point that we wo uld be able to get his skin back together, he was brought to the operating room for formal fixation. DESCRIPTION OF PROCEDURE: The patient was brought to the operating room after the left side had been identified as the correct side by the patient, nurse, and physician. Once in the operating room, he was given an adductor canal nerve block and then placed under general anesthesia using LMA. Once as leep, a tourniquet was placed around the upper portion of the left thigh, and the left lower extremit y sterilely prepped and draped in the usual fashion using a GSI solution. Once prepped and draped, t he limb was exsanguinated, tourniquet inflated to 250 mmHg. A linear incision was made on the anteri or portion of the knee extending 1 handbreadth below the tibial tuberosity and extending to just abov e the patella, with sharp dissection carried down through the skin and subcutaneous layer. The fasci a overlying the anterior compartment was divided, leaving enough of a cuff in order to fas joyce. Blunt dissection was carried down along the bony surfaces sweeping laterally. Dissection was d one into the capsule. It was noted once the capsule was violated not only was there a great deal of bone but the anterior half of the lateral meniscus had been completely avulsed off the capsule itself . He was noted to have multiple osteochondral fragments associated with the tibia that had caved in and were sitting in the metaphysis of the bone. The large vertical fracture plane in the anterior po rtion of the tibia was able to be opened up. The hematoma in the area was able to be removed. The b brenda fragments that had cartilage attached to them were able to be slowly elevated into position and t hen backfilled with bone graft that had been mixed with platelet-enriched plasma. Once in place, a p rovisional reduction was performed. Fluoroscopy was used to ensure proper fill of the metaphysis of the bone. Once this was ensured, giving a flatter surface to the lateral compartment as well as gladys ng it nearly equal to the opposite side, it was held in place using bone reduction forceps. A 2-hole Gi lateral tibial plateau plate was put into place. It had to be bent in order to get good con formity along the bone. Once it was in place, a bicortical screw was placed, lagging the lateral tib ial plateau to the rest of the metaphysis of the tibia, at which point, 3 cortical screws were placed across the tibial plateau in order to act as a raft holding the lateral tibial plateau into place. Two screws were then placed along the diaphysis holding the distal end of the plate in place. An obl ique screw was placed and one more metaphyseal screw in an inferior direction. Once finished, the wo und was thoroughly irrigated with antibiotic solution. 0 Ethibond was used to repair the meniscus at the anterior horn and the anterior capsule, putting it in a more anatomic space. The capsule was th en closed using 0 Vicryl suture. The tourniquet was deflated at 60 minutes. Bleeding was controlled using electrocautery. 0 Vicryl suture was used to close the fascia at the anterior compartment as w ell as the paratenon at the lateral portion of the patellar tendon and the patella itself. Plasma ge l was then injected into the intra-articular portion of the knee. Then, 0 Vicryl and 2-0 Vicryl sutu res were used for the subcutaneous layers and a 3-0 Prolene suture in a running subcuticular stitch f or the skin. The wound was dressed with Steri-Strips, Xeroform, 4 x 4's, wrapped in Kerlix. The leg was completely undraped in the operating room, tourniquet removed from the thigh, and an Cole wrap pl aced around the knee. The knee was then placed in a long-leg immobilizer locked at 0 degrees. He wa s then woken up, extubated, transferred onto a bed, and sent to recovery room in good condition. TOURNIQUET TIME: 60 minutes. /[id number]/MODL
[2018-01-28] MEDS: traMADol 50 MG TAB PO SCH ×5 (00:38→23:04)
[2018-01-28] MEDS: SENNOSIDES/DOCUSATE SODIUM TAB PO SCH ×3 (02:26→21:56)
[2018-01-28 05:26] LABS: PLATELET COUNT 233 10^3/uL (150-400)
[2018-01-28] MEDS: HYDROCODONE/APAP 5/325 TAB PO PRN ×3 (09:00→14:50)
--- NOTE | 2018-01-28 09:46 | ASMTCMCOM ---
CM Note CM Note Notes: Referrals sent to [facility] swing bed and [facility] in [employer]. Gracy in admissions at [facility] requests fax to [phone] she will have MD review, is concerned they may not be able to to meet pt needs she may have MD call pt to encourage him to go to an inpatient rehab but will also see how pt does after surgery. Gracy explains [facility] does not have a PT in house, they are a critical access hospital with a PT who comes for service. Yesterday pt had surgery on tib plateau fx. Pt wants to return to [place] to be close to family. [facility] inpatient rehab is still assessing pt. CM to follow. Date Signed: 01/28/2018 09:45 AM Electronically Signed By:INDIGO Burks
--- NOTE | 2018-01-28 09:58 | SOAPPROG ---
GENA Progress Note Assessment/Plan: Assessment: Plan: - L knee - will stay in locked ROM brace, NWB L elbow - unlocked brace to start gentle ROM, demonstrated how to lock brace when needed L hip - dressing change today, will monitor serous fluid R knee - slight effusion doing well, minimal pain 01/26/18 14:26 01/28/18 09:57 Subjective: Doing well overall, underwent ORIF if L tibia fx last night. Reports normal level of pain with the knee. L hip doing well. C/O slight tingling at dorsal surface of L foot. Objective: Vital Signs Temp Pulse Resp BP Pulse Ox 36.7 C 82 16 142/76 H 95 01/28/18 09:23 01/28/18 09:23 01/28/18 09:23 01/28/18 09:23 01/28/18 09:23 Laboratory Results 01/28/18 04:51 01/22/18 18:56 01/27/18 01/28/18 01/29/18 05:59 05:59 05:59 Intake Total 500 2420 Output Total 2925 725 200 Balance -2425 1695 -200 L hip still weeping serous fluid, no bleeding, compartments soft, L knee dressing cdi, compartments soft, slight sensation loss over dorsum of L foot, has good dorsiflexion and EHL active motion L elbow - incision cdi, unlocked brace ROM 90 to 15, NvI - Time Spent With Patient Time Spent With Patient: 20 - Pending Discharge Pending Discharge Within 24 Hours: No Pending Discharge Within 48 Hours: No ICD10 Worksheet Patient Problems: Problems Problem Status Onset Acute blood loss anemia Acute Elbow laceration Acute Fall (on) (from) unspecified stairs and steps, initial encounter Acute Femur fracture, left Acute Fracture, olecranon, open Acute Left radial head fracture Acute Left scapula fracture Acute Pelvic fracture Acute Tibial plateau fracture, left Acute Tibial plateau fracture, right Acute
[2018-01-28] MEDS: DIAZEPAM 5 MG/ML 1 ML SYR IVP PRN ×2 (11:42→18:16)
--- NOTE | 2018-01-28 16:07 | TRAUMAPN ---
Trauma Progress Note - Problem/Surgery Performed (2) Fracture, olecranon, open Assessment/Plan: s/p ORIF Dr. Atkinson, distal NV intact Qualifiers: Encounter type: initial encounter (3) Tibial plateau fracture, left Assessment/Plan: s/p ORIF last night, Dr. Atkinson moderate to sever pain post op distal N/V intact high risk for VTE Qualifiers: Encounter type: initial encounter (4) Tibial plateau fracture, right Assessment/Plan: non operative treatment recommended by Dr. Atkinson/uncomplicated recovery thus far ? weight bearing status RLE Qualifiers: Encounter type: initial encounter (5) Pelvic fracture Assessment/Plan: likely contributing to blood loss anemia/required transfusion minimall displaced right inferior and superior pubic ramus fractures/left SI fx Qualifiers: Encounter type: initial encounter Pelvic bone location: multiple parts Fracture type: closed Fracture alignment: with stable disruption of pelvic ring Qualified Code(s): S32.810A - Multiple fractures of pelvis with stable disruption of pelvic ring, initial encounter for closed fracture (6) Acute blood loss anemia Assessment/Plan: hemodynamically stable/will monitor H/H (7) Femur fracture, left Assessment/Plan: s/p ORIF Dr. Atkinson Qualifiers: Encounter type: initial encounter Femur location: intertrochanteric Fracture type: closed Fracture alignment: nondisplaced Qualified Code(s): S72.145A - Nondisplaced intertrochanteric fracture of left femur, initial encounter for closed fracture (8) Left radial head fracture Qualifiers: Encounter type: initial encounter Fracture type: closed (9) Left scapula fracture Assessment/Plan: minimally displaced Qualifiers: Encounter type: initial encounter Scapula location: unspecified part of scapula Fracture type: closed Qualified Code(s): S42.102A - Fracture of unspecified part of scapula, left shoulder, initial encounter for closed fracture Assessment/Plan: s/p multiple injuries/fractures Plan:s/p ORIF L prox femur/hip fx and L tibial fx per Dr. Atkinson monitor H/H, PT, OT VTE prophylaxis patient and family would like to transfer back to [place] and I believe he would be stable to do so I have put in a call to Dr. Sarath Morris, the general/trauma surgeon who transferred Mr. uBsh to [facility] for definitive orthopedic care by Dr. Atkinson. If they have a bed and Dr. Morris accepts the transfer he could be transferred over ground in the next 24-48 hours. Subjective: left knee pain Objective: Vital Signs Temp Pulse Resp BP Pulse Ox 37.0 C 87 14 137/65 H 96 01/28/18 15:48 01/28/18 15:48 01/28/18 15:48 01/28/18 15:48 01/28/18 15:48 Laboratory Results 01/28/18 04:51 01/22/18 18:56 01/27/18 01/28/18 01/29/18 05:59 05:59 05:59 Intake Total 500 2420 700 Output Total 2925 725 925 Balance -242 1695 -225 - C-Spine Clearance Cervical Spine Cleared: Yes Provider who Cleared Cervical Spine: Milagros Physical Exam - Physical Exam General Appearance: alert, mild distress Respiratory: lungs clear, normal breath sounds Cardiac/Chest: regular rate, rhythm Peripheral Pulses: 4+: dorsalis-pedis (R), dorsalis-pedis (L) Abdomen: non-tender, soft Male Genitalia: deferred Rectal: deferred Skin: normal color, warm/dry Extremities: other (bilateral distal N/V intact, serous drainage left hip incision) Neuro/Psych: no motor/sensory deficits, alert, normal mood/affect, oriented x 3
--- NOTE | 2018-01-28 16:40 | ASMTCMCOM ---
CM Note CM Note Notes: Updates faxed to [facility]. [facility] Trauma MD Kiser contacted [facility], if they accept pt and have bed availability pt can d/c 1-2 days. Date Signed: 01/28/2018 04:40 PM Electronically Signed By:INDIGO Burks
[2018-01-28] MEDS: HYDROCODONE/APAP 10/325 TAB PO PRN (18:03)
[2018-01-29] MEDS: HYDROCODONE/APAP 10/325 TAB PO PRN ×5 (00:12→17:39)
[2018-01-29] MEDS: DIAZEPAM 5 MG/ML 1 ML SYR IVP PRN (01:11)
[2018-01-29] MEDS: traMADol 50 MG TAB PO SCH ×3 (05:33→17:40)
[2018-01-29] MEDS: SENNOSIDES/DOCUSATE SODIUM TAB PO SCH ×2 (08:37→21:02)
--- NOTE | 2018-01-29 09:05 | SOAPPROG ---
GENA Progress Note Assessment/Plan: Assessment/Plan Refer to my PA node but Janelle Haqueroy/patient evaluation, exam and plan initiated by me as documented in her note 01/29/18 09:04 VS STABLE, AFEBRILE, HAD A ROUGH NITE/ WILL REARRANGE PAIN MEDS/ POSSIBLE TRANSFER TO [place] TODAY Objective: Vital Signs Temp Pulse Resp BP Pulse Ox 36.8 C 86 16 118/73 94 01/29/18 07:39 01/29/18 07:39 01/29/18 07:39 01/29/18 07:39 01/29/18 07:39 Laboratory Results 01/28/18 04:51 01/22/18 18:56 01/28/18 01/29/18 01/30/18 05:59 05:59 05:59 Intake Total 2420 1600 250 Output Total 725 1775 250 Balance 1695 -175 0 ICD10 Worksheet Patient Problems: Problems Problem Status Onset Acute blood loss anemia Acute Elbow laceration Acute Fall (on) (from) unspecified stairs and steps, initial encounter Acute Femur fracture, left Acute Fracture, olecranon, open Acute Left radial head fracture Acute Left scapula fracture Acute Pelvic fracture Acute Tibial plateau fracture, left Acute Tibial plateau fracture, right Acute
--- NOTE | 2018-01-29 09:48 | SOAPPROG ---
GENA Progress Note Assessment/Plan: Assessment: Plan: - L knee - will stay in locked ROM brace, NWB L elbow - unlocked brace to start gentle ROM, demonstrated how to lock brace when needed L hip - dressing change today, will monitor serous fluid R knee - slight effusion doing well, minimal pain 01/26/18 14:26 01/28/18 09:57 Subjective: Doing well, pain improved, Objective: Vital Signs Temp Pulse Resp BP Pulse Ox 36.8 C 86 16 118/73 94 01/29/18 07:39 01/29/18 07:39 01/29/18 07:39 01/29/18 07:39 01/29/18 07:39 Laboratory Results 01/28/18 04:51 01/22/18 18:56 01/28/18 01/29/18 01/30/18 05:59 05:59 05:59 Intake Total 2420 1600 250 Output Total 725 1775 250 Balance 1695 -175 0 dressings cdi, calf nt bilat, no dvt, nvi distally, elbow incision healing well - Time Spent With Patient Time Spent With Patient: 15 - Pending Discharge Pending Discharge Within 24 Hours: No Pending Discharge Within 48 Hours: No ICD10 Worksheet Patient Problems: Problems Problem Status Onset Acute blood loss anemia Acute Elbow laceration Acute Fall (on) (from) unspecified stairs and steps, initial encounter Acute Femur fracture, left Acute Fracture, olecranon, open Acute Left radial head fracture Acute Left scapula fracture Acute Pelvic fracture Acute Tibial plateau fracture, left Acute Tibial plateau fracture, right Acute
[2018-01-29] MEDS: morphINE SR 15 MG TAB PO SCH ×2 (09:59→21:02)
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
[2018-01-30] MEDS: traMADol 50 MG TAB PO SCH ×5 (00:20→23:45)
[2018-01-30] MEDS: HYDROCODONE/APAP 10/325 TAB PO PRN ×2 (06:00→16:44)
[2018-01-30] MEDS: morphINE SR 15 MG TAB PO SCH ×2 (09:03→21:54)
[2018-01-30] MEDS: SENNOSIDES/DOCUSATE SODIUM TAB PO SCH ×2 (09:03→21:54)
--- NOTE | 2018-01-30 09:13 | PDIAF ---
- Diagnosis Code Status: Full Code - Medication Management Discharge Medications: Medications to Continue on Transfer Diazepam [Valium] 5 mg IVP Q6HRS PRN syr 01/30/18 [Last Taken Unknown] HYDROcodone/APAP 10325 [[employer] 10/325 (*)] 1 tab PO Q3HRS PRN tab 01/30/18 [ Last Taken Unknown] Polyethylene Glycol 3350 [Miralax 17 gm (*)] 17 gm PO DAILY PRN pkt 01/30/18 [ Last Taken Unknown] Sennosides/Docusate Sodium [Senokot-S] 1 - 2 tab PO BID tab 01/30/18 [Last Taken Unknown] morphINE SR [Ms Contin/Oramorph 15 mg (*)] 15 mg PO BID tab 01/30/18 [Last Taken Unknown] traMADol [Ultram 50 mg (*)] 50 mg PO Q6HRS tab 01/30/18 [Last Taken Unknown] Discharge Medications: Refer to the Discharge Home Medication list for PRN reason. PICC Care - Routine: N/A - Orders Services needed: Physical Therapy Diet Recommendation: no restrictions on diet Diet Texture: Regular Texture Diet Wound Care Instructions: May change knee dressing to occlusive dressing for showering after 01/30. L hip has been weeping serous fluid, may need daily dressing changes. L elbow should be wrapped with AQUILES bandage to keep dirt out of the incision. Date to Remove Sutures/[place]: 02/06/18 Activity/Weight Bearing Restrictions: NWB bilateral lower extremities. L elbow 1 pound weight restriction, gentle AROM only, keep brace on Additional Instructions: - Pt is NWB bilateral lower ext, he has a ROM brace on the L elbow and do AROM, but has 1 pound weight limit, may lock the brace if needed - Take stool softener as long as you are taking narcotic pain medication - No formal need for trauma follow up. - Follow Up Care Current Providers and Referrals: SHI GEORGE [Primary Care Provider] - As per Instructions Laura Atkinson MD [Medical Doctor] - follow up as scheduled
[2018-01-30] MEDS: POLYETHYLENE GLYCOL 3350 17 GM PKT PO PRN (11:31)
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
[2018-01-31] MEDS: HYDROCODONE/APAP 10/325 TAB PO PRN ×3 (01:33→13:58)
[2018-01-31] MEDS: traMADol 50 MG TAB PO SCH ×4 (06:35→23:11)
[2018-01-31] MEDS: SENNOSIDES/DOCUSATE SODIUM TAB PO SCH ×2 (07:48→21:31)
[2018-01-31] MEDS: morphINE SR 15 MG TAB PO SCH ×2 (07:49→21:31)
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
--- NOTE | 2018-01-31 15:43 | SOAPPROG ---
GENA Progress Note Assessment/Plan: Assessment: Plan: Subjective: states he feels better and better incisions C&D with fee NVI plan for transfer tomorrow will FU in [place] Objective: Vital Signs Temp Pulse Resp BP Pulse Ox 36.5 C 78 14 111/64 93 01/31/18 08:00 01/31/18 08:00 01/31/18 08:00 01/31/18 08:00 01/31/18 08:00 Laboratory Results 01/28/18 04:51 01/22/18 18:56 01/30/18 01/31/18 02/01/18 05:59 05:59 05:59 Intake Total 1000 1290 600 Output Total 3275 1600 600 Balance -2275 -310 0 ICD10 Worksheet Patient Problems: Problems Problem Status Onset Acute blood loss anemia Acute Elbow laceration Acute Fall (on) (from) unspecified stairs and steps, initial encounter Acute Femur fracture, left Acute Fracture, olecranon, open Acute Left radial head fracture Acute Left scapula fracture Acute Pelvic fracture Acute Tibial plateau fracture, left Acute Tibial plateau fracture, right Acute
--- NOTE | 2018-01-31 16:39 | PDIAF ---
- Diagnosis Code Status: Full Code - Medication Management Discharge Medications: Medications to Continue on Transfer Diazepam [Valium] 5 mg IVP Q6HRS PRN syr 01/30/18 [Last Taken Unknown] HYDROcodone/APAP 10325 [[place] 10/325 (*)] 1 tab PO Q3HRS PRN tab 01/30/18 [ Last Taken Unknown] Polyethylene Glycol 3350 [Miralax 17 gm (*)] 17 gm PO DAILY PRN pkt 01/30/18 [ Last Taken Unknown] Sennosides/Docusate Sodium [Senokot-S] 1 - 2 tab PO BID tab 01/30/18 [Last Taken Unknown] morphINE SR [Ms Contin/Oramorph 15 mg (*)] 15 mg PO BID tab 01/30/18 [Last Taken Unknown] traMADol [Ultram 50 mg (*)] 50 mg PO Q6HRS tab 01/30/18 [Last Taken Unknown] Discharge Medications: Refer to the Discharge Home Medication list for PRN reason. PICC Care - Routine: N/A - Orders Services needed: Physical Therapy Diet Recommendation: no restrictions on diet Diet Texture: Regular Texture Diet Wound Care Instructions: May change knee dressing to occlusive dressing for showering after 01/30. L hip has been weeping serous fluid, may need daily dressing changes. L elbow should be wrapped with AQUILES bandage to keep dirt out of the incision. Date to Remove Sutures/[place]: 02/06/18 Activity/Weight Bearing Restrictions: NWB bilateral lower extremities. L elbow 1 pound weight restriction, gentle AROM only, keep brace on Additional Instructions: - Pt is NWB bilateral lower ext, he has a ROM brace on the L elbow and do AROM, but has 1 pound weight limit, may lock the brace if needed - Take stool softener as long as you are taking narcotic pain medication - No formal need for trauma follow up. - Follow Up Care Current Providers and Referrals: SHI GEORGE [Primary Care Provider] - As per Instructions Laura Atkinson MD [Medical Doctor] - follow up as scheduled
[2018-01-31] MEDS: POLYETHYLENE GLYCOL 3350 17 GM PKT PO PRN (17:43)
[2018-01-31] MEDS: oxyCODONE IR 5 MG TAB PO PRN (23:11)
[2018-02-01] MEDS: traMADol 50 MG TAB PO SCH (05:38)
[2018-02-01] MEDS: oxyCODONE IR 5 MG TAB PO PRN (05:38)
[2018-02-01 08:56] VITALS: BP 114/54
[2018-02-01] MEDS: morphINE SR 15 MG TAB PO SCH (10:04)
[2018-02-01] MEDS: SENNOSIDES/DOCUSATE SODIUM TAB PO SCH (10:04)
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
--- NOTE | 2018-02-01 14:12 | ASDISCHSUM ---
Discharge Information Plan Status:Has needs-TBD Medically Cleared to Leave:02/01/2018 Discharge Date:02/01/2018 10:49 AM CM D/C Disposition:Intermediate Facility ADT D/C Disposition:Intermediate Facility Projected Discharge Date:01/28/2018 11:00 AM Transportation at D/C:ALS/BLS Discharge Delay Reason: Follow-Up Date:01/28/2018 11:00 AM Discharge Slot: Final Diagnosis: Placement Information Referral Type:[facility] Referral ID:[id number] Provider Name: Address 1: Phone Number: Address 2: Fax Number: City: Selection Factors: State: Referral Type:*Custodial/SNF Referral ID:[id number] Provider Name:[facility] Address 1:[address], Phone Number: Address 2:[address] Fax Number: [facility]:[place] Selection Factors: State:[place] Patient Contact Information Contact Name:PAYTON Relationship: Address:[address] City:[place] Phone: State/Zip Code:[place] [address] Email: Financial Information Financial Class:HMO and PPO Plans Primary Plan Desc:[facility] Primary Plan Number:[id number] Secondary Plan Desc: Secondary Plan Number: Assessment Information [facility] CM Progress Note CM Note CM Note Notes: Patient is a healthy 52 year old michael transferred to [facility] from [facility] after sustaining a 20 foot fall and subsequent fractures. He is accompanied by his Collette and other family. I introduced myself prior to his transfer to and assured him CM would be following with any discharge planning needs prn Date Signed: 01/22/2018 04:44 PM Electronically Signed By:Nikki Fuentes RN [facility] CM Progress Note CM Note CM Note Notes: Reviewed patient's chart/therapy recommendations. OT recommending Inpatient Rehab at this time. Unable to tolerate PT today. Met with patient regarding discharge plan of care. Patient is from [place], [place] and is hoping to do therapy back at home at [facility] #[phone]. Per patient, the rehab center does not have beds, more like an outpatient rehab center. CM explained the possibility of [facility] Inpatient Rehab (Anh to reevaluate on Friday, consult placed). Patient would like to see how he does in therapy over this weekend before making any decisions. Patient aware CM is available this weekend for any questions. Current Discharge Plan: TBD. Possibly Inpatient Rehab. Date Signed: 01/23/2018 03:05 PM Electronically Signed By:Isabela Ziegler RN [facility] CM Progress Note CM Note CM Note Notes: CM consult with RN, appears patient to have surgery 01/26 or 01/27. CM available to address ongoing CM needs. Date Signed: 01/25/2018 05:20 PM Electronically Signed By:Fatmata Mahmood [facility] CM Progress Note CM Note CM Note Notes: Referrals sent to [facility] swing bed and [facility] in [employer]. Gracy in admissions at [facility] requests fax to [phone] she will have MD review, is concerned they may not be able to to meet pt needs she may have MD call pt to encourage him to go to an inpatient rehab but will also see how pt does after surgery. Gracy explains [facility] does not have a PT in house, they are a critical access hospital with a PT who comes for service. Yesterday pt had surgery on tib plateau fx. Pt wants to return to [place] to be close to family. [facility] inpatient rehab is still assessing pt. CM to follow. Date Signed: 01/28/2018 09:45 AM Electronically Signed By:INDIGO Burks [facility] CM Progress Note CM Note CM Note Notes: Updates faxed to [facility]. [facility] Trauma MD Kiser contacted [facility], if they accept pt and have bed availability pt can d/c 1-2 days. Date Signed: 01/28/2018 04:40 PM Electronically Signed By:INDIGO Burks [facility] CM Progress Note CM Note CM Note Notes: Spoke w/Travis from Trauma, Dr Atkinson would like pt to return to [place], this is the pt's wish as well. CM called Kay at the [facility] [phone] and they can take him Friday. They request that we arrange for transport with the [place] ambulance service [phone]. 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 PA will need to do a doc to doc in am and RN to call report to [phone] DC Plan: [facility] Date Signed: 01/29/2018 04:34 PM Electronically Signed By:Sary Barrett RN [facility] CM Progress Note CM Note CM Note Notes: Received call this am from Kay at [facility], they are unable to come to get pt due to white out conditions in [facility]. CM notified ARMIN, RN, and spoke to patient. CM also received call from Jamee from the [place] param[facility] who states they will come when weather clears, possibley Friday. DC Plan: Rehab [facility] Date Signed: 01/30/2018 02:53 PM Electronically Signed By:Sary Barrett RN Case Management Discharge Plan Note Case Management Discharge Discharge Order Complete? Answers: Yes Patient to Obtain Answers: Other Notes: [facility] Medications Transportation Arranged Answers: [facility] will Pick (Date 02/01/2018 11:00 AM & Time) IAIN Complete Answers: Yes Faxed Final Orders Answers: Yes Discharge Comments Notes: EMTALA form completed. MD to and RN to RN reports done to [phone]. Faxed d/c orders and meds to [phone] and sent via transport. Pt transported via stretcher. Date Signed: 02/01/2018 02:07 PM Electronically Signed By:INDIGO Cortez Intervention Information
== END 2018-02-01 10:49 | DRG 956 ==
LOC: OBSVTOIN 15:32 → F3N 17:18 → F3E 01-28 09:16
PROVIDERS: ADMIT Surgery; ATTEND Surgery
DX: S72.102A Unspecified trochanteric fracture of left femur, initial encounter for closed fracture (principal); S82.142A Displaced bicondylar fracture of left tibia, initial encounter for closed fracture; S32.512A Fracture of superior rim of left pubis, initial encounter for closed fracture; S32.591A Other specified fracture of right pubis, initial encounter for closed fracture; S52.022B Displaced fracture of olecranon process without intraarticular extension of left ulna, initial encounter for open fracture type I or II; S52.122A Displaced fracture of head of left radius, initial encounter for closed fracture; S42.102A Fracture of unspecified part of scapula, left shoulder, initial encounter for closed fracture; D62 Acute posthemorrhagic anemia; W17.89XA Other fall from one level to another, initial encounter; Y92.79 Other farm location as the place of occurrence of the external cause; Y93.89 Activity, other specified; Y99.0 Civilian activity done for income or pay
CPT/HCPCS: 92523-GN; 96374; 97162-GP; 97165-GO; 97168-GO; 97530-GO; 97530-GP; 97535-GO; C1713; C1762; J0690; J1100; J1170; J1650; J1885; J2250; J2405; J2550; J2704; J2710; J3010; J3360; L1832; P9016